=== PATIENT | female | born 1985 | race African-American/Black ===

== ENCOUNTER 2017-11-17 23:14 | Emergency (ER) | payer MEDICAID, OTHER ==
[~2017-11-17] VITALS: Ht 165.1 cm; Wt 70.0 kg
[~2017-11-17 23:14] MED LIST: FLUO10CA25; celexa; motrin; norco
[2017-11-17 23:21] VITALS: BP 146/72
== END 2017-11-18 01:22 | disposition left against medical advice (07) ==
LOC: ER 23:14
DX: Z53.21 Procedure and treatment not carried out due to patient leaving prior to being seen by health care provider (principal)

== ENCOUNTER 2018-06-13 03:15 | Emergency (ER) | payer MEDICAID ==
[~2018-06-13] VITALS: Ht 162.6 cm; Wt 59.0 kg
[2018-06-13] MEDS ORDERED: KETOROLAC 30MG/ML VIAL IV STA (03:52)
[2018-06-13 04:49] LABS: BASOPHILS % 0.5 % (0.0-2.0); EOSINOPHILS % 0.3 % (0.0-5.0); HEMATOCRIT. 42.2 % (36.0-48.0); HEMOGLOBIN. 14.5 g/dL (12.0-16.0); LYMPHOCYTES % 15.9 % (20.0-50.0); MEAN CORPUSCULAR HEMOGLOBIN 33.2 pg (28.0-32.0); MEAN CORPUSCULAR VOLUME 96.9 fL (81.0-99.0); MEAN PLATELET VOLUME 8.9 fl (7.4-10.4); MONOCYTES % 11.4 % (2.0-8.0); NEUTROPHILS % 71.9 % (40.0-76.0); PLATELET 374 x1000/uL (130-400); RED BLOOD CELL COUNT 4.35 mill/uL (4.2-5.4); RED CELL DISTRIBUTION WIDTH 15.8 % (11.6-14.6)
[2018-06-13 04:56] LABS: CLARITY URINE CLOUDY (CLEAR); COLOR URINE DARK YELLOW (YELLOW); KETONES URINE NEGATIVE (NEGATIVE); LEUKOCYTE ESTERASE URINE 3+ (NEGATIVE); NITRITE URINE NEGATIVE (NEGATIVE); OCCULT BLOOD URINE 2+ (NEGATIVE); PROTEIN URINE 1+ (NEGATIVE); SPECIFIC GRAVITY URINE 1.018 (1.005-1.030)
[2018-06-13 04:57] LABS: CHLORIDE 95 mEq/L (98-107)
[2018-06-13 05:12] LABS: INR 1.1; PROTHROMBIN TIME 10.7 sec (9.1-11.1)
[2018-06-13] MEDS ORDERED: POTASSIUM CHLORIDE 20MEQ TABLET SR PO ONE (05:15)
[2018-06-13] MEDS ORDERED: POTASSIUM CHLORIDE INJ 40 MEQ in DEXT 5% WATER 250 ML IV ONE (05:15)
[2018-06-13] MEDS ORDERED: KCL 20MEQ/100ML PREMIX 100 ML IV NR ×2 (06:00→08:00)
[2018-06-13] MEDS ORDERED: CEFTRIAXONE 1 G PREMIX 50 ML IV ONE (06:30)
[2018-06-13 11:40] VITALS: BP 117/73
== END 2018-06-13 11:48 | disposition home or self-care (01) ==
LOC: ER 03:15
DX: N39.0 Urinary tract infection, site not specified (principal); E87.6 Hypokalemia; I10 Essential (primary) hypertension; M79.1 Myalgia; R11.2 Nausea with vomiting, unspecified; Z79.899 Other long term (current) drug therapy
CPT/HCPCS: 36415; 74176; 76700; 80053; 81003; 81025; 83690; 85025; 85610; 87086; 87186; 93005; 96365; 96366; 96367; 96368; 96375; 99285; J0696; J1885; J3480; J7040; J7060

== ENCOUNTER 2018-12-10 23:27 | Emergency (ER) | payer MEDICAID, OTHER ==
[~2018-12-10] VITALS: Ht 167.6 cm; Wt 59.0 kg
[2018-12-11] MEDS ORDERED: ONDANSETRON HCL 4MG/2ML INJ IV ONE ×2 (02:15→03:45)
[2018-12-11] MEDS ORDERED: MORPHINE SULFATE 4 MG/ML CPJ (NOT FOR IM USE) IV ONE ×2 (02:15→03:45)
[2018-12-11] MEDS ORDERED: TETANUS, DIPHTHERIA, PERTUSSIS VAC/PF 0.5ML (>7YR OLD) IM ONE (02:15)
[2018-12-11] MEDS ORDERED: VANCOMYCIN 1 G PREMIX 200 ML IV SCH (02:15)
[2018-12-11] MEDS ORDERED: AMPICILLIN SOD/SULBACTAM NA 3 G in SODIUM CHLORIDE 0.9% 100 ML IV SCH (02:15)
[2018-12-11 02:27] LABS: BASOPHILS % 0.7 % (0.0-2.0); EOSINOPHILS % 0.7 % (0.0-5.0); HEMATOCRIT. 41.7 % (36.0-48.0); HEMOGLOBIN. 13.7 g/dL (12.0-16.0); LYMPHOCYTES % 37.4 % (20.0-50.0); MEAN CORPUSCULAR HEMOGLOBIN 33.1 pg (28.0-32.0); MEAN CORPUSCULAR VOLUME 100.8 fL (81.0-99.0); MEAN PLATELET VOLUME 8.1 fl (7.4-10.4); MONOCYTES % 6.7 % (2.0-8.0); NEUTROPHILS % 54.5 % (40.0-76.0); PLATELET 219 x1000/uL (130-400); RED BLOOD CELL COUNT 4.13 mill/uL (4.2-5.4); RED CELL DISTRIBUTION WIDTH 14.7 % (11.6-14.6)
[2018-12-11 02:30] LABS: CHLORIDE 109 mEq/L (98-107)
[2018-12-11] MEDS ORDERED: LORAZEPAM 2MG/ML CPJ IV ONE (04:15)
[2018-12-11] MEDS ORDERED: IBUPROFEN 600MG TABLET PO ONE (04:30)
[2018-12-11 05:46] VITALS: BP 142/90
== END 2018-12-11 06:29 ==
LOC: ER 23:27
DX: L03.114 Cellulitis of left upper limb (principal); F12.10 Cannabis abuse, uncomplicated; F17.200 Nicotine dependence, unspecified, uncomplicated; I10 Essential (primary) hypertension; Z98.890 Other specified postprocedural states
CPT/HCPCS: 36415; 73130; 80053; 81025; 85025; 90471; 90715; 96365; 96366; 96368; 96375; 96376; 99284; J0295; J2060; J2270; J2405; J3370; J7050; Z7610